=== PATIENT | female | born 1980 | race Caucasian/White ===

== ENCOUNTER 2016-10-30 20:29 | Emergency (ER) | payer OTHER ==
[~2016-10-30] VITALS: Ht 162.6 cm; Wt 67.5 kg
[2016-10-30 20:38] VITALS: BP 143/101; PULSE 91; RESP 16; TEMP 98.6; O2SAT 96
[2016-10-30 21:27] LABS: BLOOD, URINE NEG (NEG); GLUCOSE,URINE NEG (NEG); NITRITE,URINE NEG (NEG); PH, URINE 6.5 (5.0-8.5)
[2016-10-30 21:39] LABS: KETONE, URINE 80 OR GREATER mg/dL (NEG)
[2016-10-30 21:42] LABS: SQUAMOUS EPITHELIAL CELL URINE 0-5 /hpf (0-5); URINE COLOR YELLOW (YELLW/STRAW)
[2016-10-30 21:43] LABS: BACTERIA, URINE FEW /hpf; COMMENT (UR) CULTURE INDICATED; CULTURE IF INDICATED CULTURE INDICATED
[2016-10-30 22:00] VITALS: BP 159/87; PULSE 74; RESP 18; O2SAT 95
[2016-10-30] MEDS ORDERED: KETOROLAC TROMETHAMINE 30 MG/ML (IVP) VIAL IV PUSH ONE (22:00)
[2016-10-30] MEDS ORDERED: SODIUM CHLORIDE 0.9% FLUSH 10 ML FLUSH IV FLUSH PRN (22:00)
[2016-10-30] MEDS ORDERED: SODIUM CHLOR 0.9% 1000 ML INJ 1,000 ML IV ONE (22:00)
[2016-10-30 22:26] LABS: AUTOMATED NEUTROPHIL # 5.8 TH/MM3 (1.8-7.7); BASOPHIL # 0.1 TH/MM3 (0-0.2); BASOPHIL % 0.9 % (0.0-2.0); EOSINOPHIL # 0.3 TH/MM3 (0-0.4); EOSINOPHIL % 3.2 % (0.0-4.0); HEMO FLAGS DIFF FINAL; LYMPH % 18.8 % (9.0-44.0); LYMPHOCYTE # 1.6 TH/MM3 (1.0-4.8); MEAN CELL VOLUME 84.8 FL (80.0-100.0); MEAN CORPUSCULAR HEMOGLOBIN 29.4 PG (27.0-34.0); MEAN CORPUSCULAR HGB CONC 34.7 % (32.0-36.0); MONO % 6.9 % (0.0-8.0); NEUT % 70.2 % (16.0-70.0); PLATELET COUNT 291 TH/MM3 (150-450); RED BLOOD COUNT 4.48 MIL/MM3 (4.00-5.30); RED CELL DISTRIBUTION WIDTH 13.2 % (11.6-17.2); WHITE BLOOD COUNT 8.4 TH/MM3 (4.0-11.0)
[2016-10-30 22:34] LABS: POTASSIUM 3.5 MEQ/L (3.5-5.1)
[2016-10-30 22:37] LABS: BICARBONATE 26.6 MEQ/L (21.0-32.0)
[2016-10-30 23:03] VITALS: BP 138/84; PULSE 75; RESP 18; O2SAT 100
[2016-10-30] MEDS ORDERED: CIPR500T2 PO (23:04)
[2016-10-30] MEDS ORDERED: ULTR50TA5 PO (23:04)
--- NOTE | 2016-10-30 23:04 | PD ---
HPI Chief Complaint: Flank/Kidney Pain Time Seen by Provider: 22:02 Travel History International Travel<30 days: No Contact w/Intl Traveler<30days: No Traveled to known affect area: No History of Present Illness HPI Patient 36-year-old female with a history of kidney stones presents emergency department for evaluation of left flank pain. Patient denies any fevers, endorses mild nausea without vomiting. Denies any blood in the urine but does state she has some dysuria. Denies possibility for . Denies any cost patient diarrhea. Patient states symptoms are gradually worsening sharp in nature. Denies any vaginal bleeding vaginal discharge PFSH Past Medical History Diminished Hearing: Yes (GLASSES) Kidney Stones: Yes Tetanus Vaccination: Unknown Influenza Vaccination: Yes ?: Not LMP: 10/19/16 : 4 Para: 4 Miscarriage: 0 : 0 Past Surgical History Genitourinary Surgery: Yes (KIDNEY STONES) Oral Surgery: Yes (WISDOM TEETH) Social History Alcohol Use: Yes (RARE) Tobacco Use: No Substance Use: No Allergies-Medications (Allergen,Severity, Reaction): Coded Allergies: Sulfa (Verified Allergy, Intermediate, Rash, 10/30/16) Reported Meds & Prescriptions Reported Meds & Active Scripts Active Ciprofloxacin (Ciprofloxacin HCl) 500 Mg Tab 500 Mg PO BID 7 Days Ultram (Tramadol HCl) 50 Mg Tab 50 Mg PO Q6H PRN Review of Systems Except as stated in HPI: all other systems reviewed are Neg Physical Exam Narrative GENERAL: Well-developed well-nourished, comfortable in no apparent distress. SKIN: Focused skin assessment warm/dry. HEAD: Atraumatic. Normocephalic. EYES: Pupils equal and round. No scleral icterus. No injection or drainage. ENT: No nasal bleeding or discharge. Mucous membranes pink and moist. NECK: Trachea midline. No JVD. CARDIOVASCULAR: Regular rate and rhythm. No murmur appreciated. RESPIRATORY: No accessory muscle use. Clear to auscultation. Breath sounds equal bilaterally. GASTROINTESTINAL: Abdomen soft, non-tender, nondistended. Hepatic and splenic margins not palpable. Minimal left CVA tenderness. MUSCULOSKELETAL: No obvious deformities. No clubbing. No cyanosis. No edema. NEUROLOGICAL: Awake and alert. No obvious cranial nerve deficits. Motor grossly within normal limits. Normal speech. PSYCHIATRIC: Appropriate mood and affect; insight and judgment normal. Data Data Last Documented VS Vital Signs Date Time Temp Pulse Resp B/P Pulse Ox O2 Delivery O2 Flow Rate FiO2 10/30/16 23:03 75 18 138/84 100 Room Air 10/30/16 20:38 98.6 Orders Urinalysis - C+S If Indicated (10/30/16 20:50) Ed Urine Pregnancytest Poc (10/30/16 20:50) Urine Culture (10/30/16 21:07) Basic Metabolic Panel (Bmp) (10/30/16 21:51) Complete Blood Count With Diff (10/30/16 21:51) Iv Access Insert/Monitor (10/30/16 21:51) Ecg Monitoring (10/30/16 21:51) Oximetry (10/30/16 21:51) Sodium Chloride 0.9% Flush (Ns Flush) (10/30/16 22:00) Sodium Chlor 0.9% 1000 Ml Inj (Ns 1000 M (10/30/16 22:00) Ketorolac Inj (Toradol Inj) (10/30/16 22:00) Ciprofloxacin (Cipro) (10/30/16 23:15) Labs Laboratory Tests Test 10/30/16 10/30/16 21:07 22:05 Urine Color YELLOW Urine Turbidity HAZY Urine pH 6.5 Urine Specific [place] 1.020 Urine Protein NEG mg/dL Urine Glucose (UA) NEG mg/dL Urine Ketones 80 OR GREATER mg/dL Urine Occult Blood NEG Urine Nitrite NEG Urine Bilirubin NEG Urine Leukocyte Esterase MOD Urine WBC 9-14 /hpf Urine Squamous Epithelial 0-5 /hpf Cells Urine Bacteria FEW /hpf Microscopic Urinalysis Comment CULTURE INDICATED White Blood Count 8.4 TH/MM3 Red Blood Count 4.48 MIL/MM3 Hemoglobin 13.1 GM/DL Hematocrit 38.0 % Mean Corpuscular Volume 84.8 FL Mean Corpuscular Hemoglobin 29.4 PG Mean Corpuscular Hemoglobin 34.7 % Concent Red Cell Distribution Width 13.2 % Platelet Count 291 TH/MM3 Mean Platelet Volume 9.6 FL Neutrophils (%) (Auto) 70.2 % Lymphocytes (%) (Auto) 18.8 % Monocytes (%) (Auto) 6.9 % Eosinophils (%) (Auto) 3.2 % Basophils (%) (Auto) 0.9 % Neutrophils # (Auto) 5.8 TH/MM3 Lymphocytes # (Auto) 1.6 TH/MM3 Monocytes # (Auto) 0.6 TH/MM3 Eosinophils # (Auto) 0.3 TH/MM3 Basophils # (Auto) 0.1 TH/MM3 CBC Comment DIFF FINAL Differential Comment Sodium Level 141 MEQ/L Potassium Level 3.5 MEQ/L Chloride Level 105 MEQ/L Carbon Dioxide Level 26.6 MEQ/L Anion Gap 9 MEQ/L Blood Urea Nitrogen 9 MG/DL Creatinine 0.61 MG/DL Estimat Glomerular Filtration 111 ML/MIN Rate Random Glucose 92 MG/DL Calcium Level 9.4 MG/DL MDM Medical Decision Making Medical Screen Exam Complete: Yes Emergency Medical Condition: Yes Differential Diagnosis Polynephritis, kidney stone, urinary tract infection, acute abdomen unlikely. Narrative Course Patient roomed emerged department, she appears quite comfortable for a kidney stone. Her urine is much more indicative of an infection. There is no hematuria. I discussed with the patient be happy to pursue a CAT scan but at this point in my opinion is that the risks of radiation exposure outweigh the possible benefits. I recommended that she try antibiotics first and if her pain is not improved in the short-term that she can return emergency department for rule out of a kidney stone. At this time she would like to go home and try antibodies alone. She is feeling better after pain medicines in the emergency department. She stable for discharge this time. Recommend follow-up primary care physician. Diagnosis Primary Impression: Pyelonephritis Med/Other Pt SpecificInfo: Prescription(s) given Scripts Ciprofloxacin 500 Mg [id number] Mg PO BID 7 Days Ref 0 Prov:Johan Ruffin MD 10/30/16 Tramadol (Ultram)50 Mg Tab50 Mg PO Q6H PRN (PAIN) #15 TAB Ref 0 Prov:Johan Ruffin MD 10/30/16 Disposition: DISCHARGE HOME Condition: Stable Johan Ruffin MD Oct 30, 2016 23:04
[2016-10-30] MEDS ORDERED: CIPROFLOXACIN 500 MG TAB PO ONE (23:15)
== END 2016-10-30 23:22 | disposition home or self-care (01) ==
LOC: PHED 20:29
DX: N12 Tubulo-interstitial nephritis, not specified as acute or chronic (principal); R11.0 Nausea; Z87.442 Personal history of urinary calculi
CPT/HCPCS: 80048; 81001; 84703; 85025; 87086; 96361; 96374; 99284; J1885; J7030

== ENCOUNTER 2016-11-05 08:47 | Emergency (ER) | payer OTHER ==
[~2016-11-05] VITALS: Ht 165.1 cm; Wt 67.5 kg
[~2016-11-05 08:47] MED LIST: CIPR500T2 PO; ULTR50TA5 PO
[2016-11-05 08:49] VITALS: BP 130/82; PULSE 92; RESP 16; TEMP 98.4; O2SAT 99
[2016-11-05 09:13] LABS: BLOOD, URINE TRACE (NEG); GLUCOSE,URINE NEG (NEG); KETONE, URINE TRACE mg/dL (NEG); NITRITE,URINE NEG (NEG); PH, URINE 5.5 (5.0-8.5)
[2016-11-05 09:17] LABS: METHOD OF COLLECTION CLEAN CATCH; URINE COLOR YELLOW (YELLW/STRAW)
[2016-11-05 09:18] LABS: BACTERIA, URINE MANY /hpf; COMMENT (UR) CULTURE INDICATED; CULTURE IF INDICATED CULTURE INDICATED; SQUAMOUS EPITHELIAL CELL URINE > 8 /hpf (0-5)
--- NOTE | 2016-11-05 09:35 | PD ---
HPI Chief Complaint: Flank/Kidney Pain Time Seen by Provider: 09:34 Travel History International Travel<30 days: No Contact w/Intl Traveler<30days: No Traveled to known affect area: No History of Present Illness HPI 36-year-old female came to the emergency room with history of left flank pain. Patient says she was here a few days ago with same complain and was told that she has UTI and discharged home on ciprofloxacin. She has been taking it like she is supposed to. However she is not feeling any better. No history of fever or chills. Patient says she's been nauseous but has not had any vomiting. She does have history of kidney stones. No signs were stable in the ER. PFSH Past Medical History Narrative Medical List of her past medical, surgical, social and family history was reviewed from the nursing note. Hx Anticoagulant Therapy: No Diabetes: No Diminished Hearing: Yes (GLASSES) Kidney Stones: Yes Influenza Vaccination: Yes ?: Not LMP: 10/17/2016 : 4 Para: 4 Miscarriage: 0 : 0 Past Surgical History Genitourinary Surgery: Yes (KIDNEY STONES) Oral Surgery: Yes (WISDOM TEETH) Social History Alcohol Use: Yes (RARE) Tobacco Use: No Substance Use: No Allergies-Medications (Allergen,Severity, Reaction): Coded Allergies: Sulfa (Verified Allergy, Intermediate, Rash, 11/05/16) Comments List of her allergies reviewed from the nursing note. Reported Meds & Prescriptions Reported Meds & Active Scripts Active Macrobid (Nitrofurantoin Monoh/Nitrofur Macro) 100 Mg Cap 100 Mg PO BID 10 Days Ciprofloxacin (Ciprofloxacin HCl) 500 Mg Tab 500 Mg PO BID 7 Days Ultram (Tramadol HCl) 50 Mg Tab 50 Mg PO Q6H PRN Narrative Medication List of her home medications reviewed from the nursing note. Review of Systems Except as stated in HPI: all other systems reviewed are Neg Physical Exam Narrative GENERAL: Awake, alert, mild distress SKIN: Focused skin assessment warm/dry. HEAD: Atraumatic. Normocephalic. EYES: Pupils equal and round. No scleral icterus. No injection or drainage. ENT: No nasal bleeding or discharge. Mucous membranes pink and moist. NECK: Trachea midline. No JVD. CARDIOVASCULAR: Regular rate and rhythm. No murmur appreciated. RESPIRATORY: No accessory muscle use. Clear to auscultation. Breath sounds equal bilaterally. GASTROINTESTINAL: Abdomen soft, non-tender, nondistended. Hepatic and splenic margins not palpable. Left CVA tenderness MUSCULOSKELETAL: No obvious deformities. No clubbing. No cyanosis. No edema. NEUROLOGICAL: Awake and alert. No obvious cranial nerve deficits. Motor grossly within normal limits. Normal speech. PSYCHIATRIC: Appropriate mood and affect; insight and judgment normal. Data Data Last Documented VS Vital Signs Date Time Temp Pulse Resp B/P Pulse Ox O2 Delivery O2 Flow Rate FiO2 11/05/16 11:35 70 18 140/67 99 11/05/16 10:14 Room Air 11/05/16 08:49 98.4 Orders Urinalysis - C+S If Indicated (11/05/16 09:06) Ed Urine Pregnancytest Poc (11/05/16 09:06) Urine Culture (11/05/16 09:00) Complete Blood Count With Diff (11/05/16 09:40) Ct Abd/Pel W/O Iv Contrast (11/05/16 09:40) Iv Access Insert/Monitor (11/05/16 09:40) Ecg Monitoring (11/05/16 09:40) Oximetry (11/05/16 09:40) Sodium Chlor 0.9% 1000 Ml Inj (Ns 1000 M (11/05/16 09:40) Sodium Chloride 0.9% Flush (Ns Flush) (11/05/16 09:45) Ceftriaxone Inj (Rocephin Inj) (11/05/16 09:45) Blood Culture (11/05/16 09:40) Ketorolac Inj (Toradol Inj) (11/05/16 10:30) Labs Laboratory Tests Test 11/05/16 11/05/16 09:00 09:45 Urine Collection Type CLEAN CATCH Urine Color YELLOW Urine Turbidity CLEAR Urine pH 5.5 Urine Specific [place] 1.028 Urine Protein 30 mg/dL Urine Glucose (UA) NEG mg/dL Urine Ketones TRACE mg/dL Urine Occult Blood TRACE Urine Nitrite NEG Urine Bilirubin NEG Urine Leukocyte Esterase SMALL Urine RBC 4-9 /hpf Urine WBC 25-49 /hpf Urine WBC Clumps MOD Urine Squamous Epithelial > 8 /hpf Cells Urine Bacteria MANY /hpf Microscopic Urinalysis Comment CULTURE INDICATED Urine Collection Time 09:00 White Blood Count 8.6 TH/MM3 Red Blood Count 4.86 MIL/MM3 Hemoglobin 13.8 GM/DL Hematocrit 42.3 % Mean Corpuscular Volume 87.1 FL Mean Corpuscular Hemoglobin 28.4 PG Mean Corpuscular Hemoglobin 32.6 % Concent Red Cell Distribution Width 14.3 % Platelet Count 276 TH/MM3 Mean Platelet Volume 9.6 FL Neutrophils (%) (Auto) 76.2 % Lymphocytes (%) (Auto) 13.5 % Monocytes (%) (Auto) 6.7 % Eosinophils (%) (Auto) 2.9 % Basophils (%) (Auto) 0.7 % Neutrophils # (Auto) 6.4 TH/MM3 Lymphocytes # (Auto) 1.2 TH/MM3 Monocytes # (Auto) 0.6 TH/MM3 Eosinophils # (Auto) 0.3 TH/MM3 Basophils # (Auto) 0.1 TH/MM3 CBC Comment DIFF FINAL Differential Comment MDM Medical Decision Making Medical Screen Exam Complete: Yes Emergency Medical Condition: Yes Medical Record Reviewed: Yes Differential Diagnosis Acute pyelonephritis, renal colic Narrative Course 10:48 AM UA is suggestive of UTI. CBC is within normal limit. CT scan does not show any ureteral stone or obstruction. I will discharge her home on Macrobid. Patient had received 1 g of IV Rocephin and Toradol for pain. Procedures EKG Prior to Arrival: No Diagnosis Primary Impression: Pyelonephritis Referrals: Primary Care Physician 2 days Additional Instructions: Please return to the ER if the condition worsens or any other new concerns. Otherwise follow-up with your primary care in couple days. Taking ciprofloxacin that he will given. Instead take the new antibiotic that has been prescribed to you as directed. Med/Other Pt SpecificInfo: Prescription(s) given Scripts Nitrofurantoin Monohydrate Macrocrystals (Macrobid)100 Mg [id number] Mg PO BID 10 Days Ref 0 Prov:Nayeli Caballero MD 11/05/16 Disposition: 01 DISCHARGE HOME Condition: Stable Nayeli Caballero MD November 05, 2016 09:34
[2016-11-05] MEDS ORDERED: SODIUM CHLOR 0.9% 1000 ML INJ 1,000 ML IV SCH (09:40)
[2016-11-05] MEDS ORDERED: cefTRIAXone INJ 1,000 MG in SODIUM CHLORIDE 0.9% INJ 100 ML IV ONE (09:45)
[2016-11-05] MEDS ORDERED: SODIUM CHLORIDE 0.9% FLUSH 10 ML FLUSH IV FLUSH PRN (09:45)
[2016-11-05 09:59] LABS: AUTOMATED NEUTROPHIL # 6.4 TH/MM3 (1.8-7.7); BASOPHIL # 0.1 TH/MM3 (0-0.2); BASOPHIL % 0.7 % (0.0-2.0); EOSINOPHIL # 0.3 TH/MM3 (0-0.4); EOSINOPHIL % 2.9 % (0.0-4.0); HEMATOCRIT 42.3 % (35.0-46.0); LYMPH % 13.5 % (9.0-44.0); LYMPHOCYTE # 1.2 TH/MM3 (1.0-4.8); MEAN CELL VOLUME 87.1 FL (80.0-100.0); MEAN CORPUSCULAR HEMOGLOBIN 28.4 PG (27.0-34.0); MEAN CORPUSCULAR HGB CONC 32.6 % (32.0-36.0); MONO % 6.7 % (0.0-8.0); NEUT % 76.2 % (16.0-70.0); PLATELET COUNT 276 TH/MM3 (150-450); RED BLOOD COUNT 4.86 MIL/MM3 (4.00-5.30); RED CELL DISTRIBUTION WIDTH 14.3 % (11.6-17.2); WHITE BLOOD COUNT 8.6 TH/MM3 (4.0-11.0)
[2016-11-05 10:00] LABS: HEMO FLAGS DIFF FINAL
[2016-11-05 10:14] VITALS: BP 115/80; PULSE 84; RESP 18; O2SAT 98
--- NOTE | 2016-11-05 10:26 | RADHPO ---
EXAM DATE/TIME: 11/05/2016 09:55 [facility] COMPARISON: No previous studies available for comparison. INDICATIONS : Patient has history of renal stones, complains of left flank pain. ORAL CONTRAST: No oral contrast ingested. RADIATION DOSE: 8.30 CTDIvol (mGy) MEDICAL HISTORY : Renal calculi. SURGICAL HISTORY : None. ENCOUNTER: Subsequent ACUITY: 4 - 6 days PAIN SCALE: 8/10 LOCATION: Left flank : UrineNo If Y, explain: LABS:Labs Not Recorded Per Protocol BUN:2015 Hgb: PT: Creatinine:2016 Hct: APTT: GFR: Platelets: INR: D-Dimer: WBC: Beta:Previous IV Contrast? Previous reaction to iodinated contrast: Explain: Taking Glucophage, Glucovance, Avandamet, Metformin, Metformin/glyburide, Metformin/rosaiglitazone) - hold 48 hours post IV contrast. TECHNIQUE: Volumetric scanning of the abdomen and pelvis was performed. Using automated exposure control and ad justment of the mA and/or kV according to patient size, radiation dose was kept as low as reasonably achievable to obtain optimal diagnostic quality images. FINDINGS: LOWER LUNGS: The visualized lower lungs are clear. LIVER: Homogeneous density without lesion. There is no dilation of the biliary tree. No calcified gallston es. SPLEEN: The spleen is mildly enlarged. PANCREAS: Within normal limits. KIDNEYS: Normal in size and shape. There is no mass or hydronephrosis. There is a tiny 2 mm calcified nonobst ructing lower pole left renal calculus. ADRENAL GLANDS: Within normal limits. VASCULAR: There is no aortic aneurysm. BOWEL/MESENTERY: The stomach, small bowel, and colon demonstrate no acute abnormality. There is no free intraperitone al air or fluid. The appendix is not opacified. ABDOMINAL WALL: Within normal limits. RETROPERITONEUM: There is no lymphadenopathy. BLADDER: No wall thickening or mass. REPRODUCTIVE: Some free fluid is noted within the pelvis. The uterus and ovaries are unremarkable. INGUINAL: There is no lymphadenopathy or hernia. MUSCULOSKELETAL: Within normal limits for patient age. CONCLUSION: 1. Tiny 2 mm calcified nonobstructing lower pole left renal calculus. 2. No acute obstructive uropathy. 3. Mild splenomegaly. 4. Some free fluid within the pelvis. Johan Desai MD on November 05, 2016 at 10:18 Board Certified Radiologist. This report was verified electronically.
[2016-11-05] MEDS ORDERED: KETOROLAC TROMETHAMINE 30 MG/ML (IVP) VIAL IV PUSH ONE (10:30)
[2016-11-05] MEDS ORDERED: MACR100C2 PO (10:49)
[2016-11-05 11:16] VITALS: RESP 18
[2016-11-05 11:35] VITALS: BP 140/67
== END 2016-11-05 11:35 | disposition home or self-care (01) ==
LOC: PHED 08:47
DX: N12 Tubulo-interstitial nephritis, not specified as acute or chronic (principal); B96.89 Other specified bacterial agents as the cause of diseases classified elsewhere; Z87.442 Personal history of urinary calculi
CPT/HCPCS: 74176; 81001; 84703; 85025; 87040; 87086; 96365; 96375; 99284; J0696; J1885; J7030

== ENCOUNTER 2017-02-01 13:17 | Emergency (ER) | payer OTHER ==
[~2017-02-01 13:17] MED LIST changes: -CIPR500T2 PO; +LO LTAB PO; -ULTR50TA5 PO; +ZITHTAB PO
[2017-02-01 13:27] VITALS: BP 139/73; PULSE 81; RESP 18; TEMP 98.4; O2SAT 97
[2017-02-01] MEDS ORDERED: PROM12.54 PO (13:29)
[2017-02-01] MEDS ORDERED: METH750T PO (13:29)
[2017-02-01] MEDS ORDERED: SODIUM CHLOR 0.9% 1000 ML INJ 1,000 ML IV SCH (13:41)
[2017-02-01] MEDS ORDERED: ONDANSETRON HCL 4 MG/2 ML VIAL IVP ONE (13:45)
[2017-02-01] MEDS ORDERED: SODIUM CHLORIDE 0.9% FLUSH 10 ML FLUSH IV FLUSH PRN (13:45)
[2017-02-01] MEDS ORDERED: KETOROLAC TROMETHAMINE 30 MG/ML (IVP) VIAL IVP ONE (13:45)
--- NOTE | 2017-02-01 13:56 | PD ---
HPI Chief Complaint: Flank/Kidney Pain Time Seen by Provider: 13:32 Travel History International Travel<30 days: No Contact w/Intl Traveler<30days: No Traveled to known affect area: No History of Present Illness HPI The patient is a 37-year-old female who presents emergency department for left flank pain of one week's duration. Patient states she developed left mid back pain and flank pain 1 week ago that has been intermittent and episodic. She has been taking [id number] medications and pain medications for her symptoms which do help with the pain, however, the pain will return. The patient denies any dysuria, frequency, urgency, vaginal discharge, or vaginal bleeding. The first day of the last menstrual cycle was last Friday, patient denies . The patient does have a history of prior pyelonephritis and nephrolithiasis. The patient denies any current hematuria. She does complain of mild nausea secondary to the pain but denies any vomiting. The patient denies any associated fever, chills, or sweats. PFSH Past Medical History Hx Anticoagulant Therapy: No Diabetes: No Diminished Hearing: Yes (GLASSES) Kidney Stones: Yes ?: Not : 4 Para: 4 Miscarriage: 0 : 0 Past Surgical History Genitourinary Surgery: Yes (KIDNEY STONES) Oral Surgery: Yes (WISDOM TEETH) Social History Alcohol Use: Yes (RARE) Tobacco Use: No Substance Use: No Allergies-Medications (Allergen,Severity, Reaction): Coded Allergies: Sulfa (Verified Allergy, Intermediate, Rash, 02/01/17) Reported Meds & Prescriptions Reported Meds & Active Scripts Active Zithromax Z-Fadi (Azithromycin) 250 Mg Dspk 250 Mg PO DIRECTED 500 MG (2 tabs) day 1, then 1 tab days 2-5. Lo Loestrin Fe /10 (Norethindrone-Ethinyl Estradiol-Fe) 1-10 Mg-Mcg Tab 1 Tab PO DAILY Reported Methocarbamol 750 Mg Tab 750 Mg PO HS Promethazine (Promethazine HCl) 12.5 Mg Tab 25 Mg PO Q6H PRN Review of Systems Except as stated in HPI: all other systems reviewed are Neg General / Constitutional: No: Fever Gastrointestinal: Positive: Nausea, No: Vomiting, Abdominal Pain Genitourinary: Positive: Flank Pain, No: Urgency, Frequency, Dysuria, Hematuria, Discharge, Vaginal Bleeding Skin: No Rash Physical Exam Narrative GENERAL: Awake, alert, pleasant 37 year-old female who appears her stated age and is in no acute respiratory distress. SKIN: Focused skin assessment warm/dry. HEAD: Atraumatic. Normocephalic. EYES: No injection or drainage. ENT: No nasal bleeding or discharge. Mucous membranes pink and moist. NECK: Trachea midline. No JVD. CARDIOVASCULAR: Regular rate and rhythm. No murmur appreciated. RESPIRATORY: No accessory muscle use. Clear to auscultation. Breath sounds equal bilaterally. GASTROINTESTINAL: Abdomen soft, non-tender, nondistended. No suprapubic tenderness. Back: Left CVA tenderness. MUSCULOSKELETAL: No obvious deformities. No clubbing. No cyanosis. No edema. NEUROLOGICAL: Awake and alert. No obvious cranial nerve deficits. Motor grossly within normal limits. Normal speech. PSYCHIATRIC: Appropriate mood and affect; insight and judgment normal. Data Data Last Documented VS Vital Signs Date Time Temp Pulse Resp B/P Pulse Ox O2 Delivery O2 Flow Rate FiO2 02/01/17 14:04 102 18 119/78 96 Room Air 02/01/17 13:27 98.4 Orders Complete Blood Count With Diff (02/01/17 13:41) Comprehensive Metabolic Panel (02/01/17 13:41) Lipase (02/01/17 13:41) Urinalysis - C+S If Indicated (02/01/17 13:41) Iv Access Insert/Monitor (02/01/17 13:41) Ecg Monitoring (02/01/17 13:41) Oximetry (02/01/17 13:41) Ondansetron Inj (Zofran Inj) (02/01/17 13:45) Sodium Chlor 0.9% 1000 Ml Inj (Ns 1000 M (02/01/17 13:41) Sodium Chloride 0.9% Flush (Ns Flush) (02/01/17 13:45) Ketorolac Inj (Toradol Inj) (02/01/17 13:45) Ed Urine Pregnancytest Poc (02/01/17 13:56) Sodium Chlor 0.9% 1000 Ml Inj (Ns 1000 M (02/01/17 14:00) Ct Abd/Pel W/O Iv Contrast (02/01/17 ) Labs Laboratory Tests Test 02/01/17 02/01/17 13:40 13:45 Urine Collection Type CLEAN CATCH Urine Color YELLOW Urine Turbidity CLEAR Urine pH 8.5 Urine Specific [place] 1.016 Urine Protein NEG mg/dL Urine Glucose (UA) NEG mg/dL Urine Ketones NEG mg/dL Urine Occult Blood NEG Urine Nitrite NEG Urine Bilirubin NEG Urine Leukocyte Esterase NEG Urine WBC 3-5 /hpf Urine Squamous Epithelial 6-8 /hpf Cells Urine Amorphous Sediment FEW Microscopic Urinalysis Comment CULT NOT INDICATED Urine Collection Time 13:40 White Blood Count 9.4 TH/MM3 Red Blood Count 4.40 MIL/MM3 Hemoglobin 13.1 GM/DL Hematocrit 38.1 % Mean Corpuscular Volume 86.6 FL Mean Corpuscular Hemoglobin 29.8 PG Mean Corpuscular Hemoglobin 34.3 % Concent Red Cell Distribution Width 12.8 % Platelet Count 273 TH/MM3 Mean Platelet Volume 9.2 FL Neutrophils (%) (Auto) 69.8 % Lymphocytes (%) (Auto) 20.9 % Monocytes (%) (Auto) 5.7 % Eosinophils (%) (Auto) 2.7 % Basophils (%) (Auto) 0.9 % Neutrophils # (Auto) 6.5 TH/MM3 Lymphocytes # (Auto) 2.0 TH/MM3 Monocytes # (Auto) 0.5 TH/MM3 Eosinophils # (Auto) 0.3 TH/MM3 Basophils # (Auto) 0.1 TH/MM3 CBC Comment DIFF FINAL Differential Comment Sodium Level 143 MEQ/L Potassium Level 3.8 MEQ/L Chloride Level 109 MEQ/L Carbon Dioxide Level 27.2 MEQ/L Anion Gap 7 MEQ/L Blood Urea Nitrogen 10 MG/DL Creatinine 0.78 MG/DL Estimat Glomerular Filtration 83 ML/MIN Rate Random Glucose 85 MG/DL Calcium Level 8.9 MG/DL Total Bilirubin 0.4 MG/DL Aspartate Amino Transf 20 U/L (AST/SGOT) Alanine Aminotransferase 26 U/L (ALT/SGPT) Alkaline Phosphatase 48 U/L Total Protein 7.3 GM/DL Albumin 3.7 GM/DL Lipase 124 U/L [facility] Medical Decision Making Medical Screen Exam Complete: Yes Emergency Medical Condition: Yes Medical Record Reviewed: Yes Interpretation(s) Laboratory Tests Test 02/01/17 02/01/17 13:40 13:45 Urine Collection Type CLEAN CATCH Urine Color YELLOW Urine Turbidity CLEAR Urine pH 8.5 Urine Specific [place] 1.016 Urine Protein NEG mg/dL Urine Glucose (UA) NEG mg/dL Urine Ketones NEG mg/dL Urine Occult Blood NEG Urine Nitrite NEG Urine Bilirubin NEG Urine Leukocyte Esterase NEG Urine WBC 3-5 /hpf Urine Squamous Epithelial 6-8 /hpf Cells Urine Amorphous Sediment FEW Microscopic Urinalysis Comment CULT NOT INDICATED Urine Collection Time 13:40 White Blood Count 9.4 TH/MM3 Red Blood Count 4.40 MIL/MM3 Hemoglobin 13.1 GM/DL Hematocrit 38.1 % Mean Corpuscular Volume 86.6 FL Mean Corpuscular Hemoglobin 29.8 PG Mean Corpuscular Hemoglobin 34.3 % Concent Red Cell Distribution Width 12.8 % Platelet Count 273 TH/MM3 Mean Platelet Volume 9.2 FL Neutrophils (%) (Auto) 69.8 % Lymphocytes (%) (Auto) 20.9 % Monocytes (%) (Auto) 5.7 % Eosinophils (%) (Auto) 2.7 % Basophils (%) (Auto) 0.9 % Neutrophils # (Auto) 6.5 TH/MM3 Lymphocytes # (Auto) 2.0 TH/MM3 Monocytes # (Auto) 0.5 TH/MM3 Eosinophils # (Auto) 0.3 TH/MM3 Basophils # (Auto) 0.1 TH/MM3 CBC Comment DIFF FINAL Differential Comment Sodium Level 143 MEQ/L Potassium Level 3.8 MEQ/L Chloride Level 109 MEQ/L Carbon Dioxide Level 27.2 MEQ/L Anion Gap 7 MEQ/L Blood Urea Nitrogen 10 MG/DL Creatinine 0.78 MG/DL Estimat Glomerular Filtration 83 ML/MIN Rate Random Glucose 85 MG/DL Calcium Level 8.9 MG/DL Total Bilirubin 0.4 MG/DL Aspartate Amino Transf 20 U/L (AST/SGOT) Alanine Aminotransferase 26 U/L (ALT/SGPT) Alkaline Phosphatase 48 U/L Total Protein 7.3 GM/DL Albumin 3.7 GM/DL Lipase 124 U/L CT of the abdomen and pelvis reveals no acute obstructive uropathy. Stable tiny 2 mm calcified nonobstructing lower pole left renal calculus. Differential Diagnosis Differential diagnosis includes pyelonephritis, nephrolithiasis, hydronephrosis , diverticulitis, pancreatitis, ectopic , PID, cervicitis. Narrative Course IV was established, labs are drawn and sent, and the patient was placed on cardiac telemetry monitoring and continuous pulse oximetry monitoring. UA was obtained. Bedside UA test was obtained. The patient was administered Toradol, Zofran, and IV fluids for her symptoms. UA was negative, therefore, CT of the abdomen and pelvis without IV contrast was ordered to rule out nephrolithiasis. CBC and CMP are unremarkable. Bedside UA test was negative. CT of the abdomen and pelvis reveals a stable tiny 2 mm calcified nonobstructing lower pole left renal calculus. No acute obstructive uropathy noted. Patient's labs are unremarkable, UA is negative, and CT the abdomen and pelvis is unremarkable. Patient's pain may be secondary to neuralgia versus ovarian cyst. Patient is stable for outpatient follow-up. The patient states she has ibuprofen 800 mg for pain at home, I will add [place] as needed for breakthrough pain. Diagnosis Primary Impression: Left flank pain Patient Instructions: General Instructions Additional Instructions: Please provide the patient a copy of her lab results and CT results at discharge. Medications as directed. Follow-up with a primary physician. Return if symptoms worsen or progress. Med/Other Pt SpecificInfo: Prescription(s) given Scripts Hydrocodone-Acetaminophen ([place])5-325 mg Tab1 Tab PO Q6H PRN (PAIN) #15 TAB Ref 0 Prov:Jesse Barron MD 02/01/17 Disposition: 01 DISCHARGE HOME Condition: Stable Jesse Barron MD Feb 01, 2017 13:56
[2017-02-01] MEDS ORDERED: SODIUM CHLOR 0.9% 1000 ML INJ 1,000 ML IV ONE (14:00)
[2017-02-01 14:03] LABS: BLOOD, URINE NEG (NEG); GLUCOSE,URINE NEG (NEG); KETONE, URINE NEG (NEG); NITRITE,URINE NEG (NEG); PH, URINE 8.5 (5.0-8.5)
[2017-02-01 14:04] VITALS: BP 119/78; PULSE 102; RESP 18; O2SAT 96
[2017-02-01 14:05] LABS: METHOD OF COLLECTION CLEAN CATCH; URINE COLOR YELLOW (YELLW/STRAW)
[2017-02-01 14:07] LABS: COMMENT (UR) CULT NOT INDICATED; CULTURE IF INDICATED CULT NOT INDICATED
[2017-02-01 14:09] LABS: AUTOMATED NEUTROPHIL # 6.5 TH/MM3 (1.8-7.7); BASOPHIL # 0.1 TH/MM3 (0-0.2); BASOPHIL % 0.9 % (0.0-2.0); EOSINOPHIL # 0.3 TH/MM3 (0-0.4); EOSINOPHIL % 2.7 % (0.0-4.0); HEMATOCRIT 38.1 % (35.0-46.0); HEMO FLAGS DIFF FINAL; LYMPH % 20.9 % (9.0-44.0); MEAN CELL VOLUME 86.6 FL (80.0-100.0); MEAN CORPUSCULAR HEMOGLOBIN 29.8 PG (27.0-34.0); MEAN CORPUSCULAR HGB CONC 34.3 % (32.0-36.0); MONO % 5.7 % (0.0-8.0); NEUT % 69.8 % (16.0-70.0); PLATELET COUNT 273 TH/MM3 (150-450); RED CELL DISTRIBUTION WIDTH 12.8 % (11.6-17.2); WHITE BLOOD COUNT 9.4 TH/MM3 (4.0-11.0)
[2017-02-01 14:12] LABS: CHLORIDE 109 MEQ/L (98-107); POTASSIUM 3.8 MEQ/L (3.5-5.1); SODIUM (NA) 143 MEQ/L (136-145)
[2017-02-01 14:16] LABS: ANION GAP 7 MEQ/L (5-15); BICARBONATE 27.2 MEQ/L (21.0-32.0); BLOOD UREA NITROGEN 10 MG/DL (7-18)
[2017-02-01 14:19] LABS: ALT (GPT) 26 U/L (10-53); AST (GOT) 20 U/L (15-37); GLOMERULAR FILTRATION RATE 83 ML/MIN (>89)
[2017-02-01 14:20] LABS: TOTAL BILIRUBIN ADULT 0.4 MG/DL (0.2-1.0)
[2017-02-01 14:22] LABS: ALKALINE PHOSPHATASE 48 U/L (45-117)
--- NOTE | 2017-02-01 14:45 | RADRPT ---
EXAM DATE/TIME: 02/01/2017 14:22 [facility] COMPARISON: CT ABDOMEN & PELVIS W/O CONTRAST, November 05, 2016, 9:55. INDICATIONS : Left flank pain. History of stones. ORAL CONTRAST: None. RADIATION DOSE: 7.54 CTDIvol (mGy) MEDICAL HISTORY : Renal calculi. Seen in September SURGICAL HISTORY : None. ENCOUNTER: Initial ACUITY: 1 week PAIN SCALE: 7/10 LOCATION: Left flank TECHNIQUE: Volumetric scanning of the abdomen and pelvis was performed. Using automated exposure control and ad justment of the mA and/or kV according to patient size, radiation dose was kept as low as reasonably achievable to obtain optimal diagnostic quality images. DICOM format image data is available electro nically for review and comparison. FINDINGS: LOWER LUNGS: The visualized lower lungs are clear. LIVER: Homogeneous density without lesion. There is no dilation of the biliary tree. No calcified gallston es. SPLEEN: Normal size without lesion. PANCREAS: Within normal limits. KIDNEYS: Normal in size and shape. There is no mass or hydronephrosis. There is a tiny 2 mm calcified nonobst ructing lower pole left renal calculus. ADRENAL GLANDS: Within normal limits. VASCULAR: There is no aortic aneurysm. BOWEL/MESENTERY: The stomach, small bowel, and colon demonstrate no acute abnormality. There is no free intraperitone al air or fluid. ABDOMINAL WALL: Within normal limits. RETROPERITONEUM: There is no lymphadenopathy. BLADDER: No wall thickening or mass. REPRODUCTIVE: Within normal limits. INGUINAL: There is no lymphadenopathy or hernia. MUSCULOSKELETAL: Within normal limits for patient age. CONCLUSION: 1. No acute obstructive uropathy. 2. Stable tiny 2 mm calcified nonobstructing lower pole left renal calculus. Johan Desai MD on February 01, 2017 at 14:39 Board Certified Radiologist. This report was verified electronically.
[2017-02-01] MEDS ORDERED: NORC5TAB PO (14:52)
[2017-02-01 15:05] VITALS: BP 110/69
== END 2017-02-01 15:12 | disposition home or self-care (01) ==
LOC: PHED 13:17
DX: R10.9 Unspecified abdominal pain (principal); R11.0 Nausea; Z87.448 Personal history of other diseases of urinary system; Z87.442 Personal history of urinary calculi
CPT/HCPCS: 74176; 80053; 81001; 83690; 84703; 85025; 96361; 96374; 96375; 99285; J1885; J2405; J7030

== ENCOUNTER 2017-05-15 08:31 | Emergency (ER) | payer MEDICAID, OTHER ==
[~2017-05-15] VITALS: Ht 162.6 cm; Wt 60.1 kg
[~2017-05-15 08:31] MED LIST changes: +METH750T PO; +NORC5TAB PO; +PROM12.54 PO
[2017-05-15 08:35] VITALS: BP 136/83; PULSE 75; RESP 16; TEMP 98.3; O2SAT 98
[2017-05-15] MEDS ORDERED: EXCETAB31 PO (08:57)
[2017-05-15] MEDS ORDERED: SODIUM CHLOR 0.9% 1000 ML INJ 1,000 ML IV ONE (09:12)
[2017-05-15] MEDS ORDERED: ACETAMINOPHEN 325 MG TAB PO ONE (09:15)
[2017-05-15] MEDS ORDERED: PROCHLORPERAZINE INJ 10 MG/2 ML VIAL IVP ONE (09:15)
[2017-05-15] MEDS ORDERED: diphenhydrAMINE HCL 50 MG/ML VIAL IVP ONE (09:15)
[2017-05-15] MEDS ORDERED: SODIUM CHLORIDE 0.9% FLUSH 10 ML FLUSH IVF PRN (09:15)
[2017-05-15 10:11] VITALS: BP 115/85; PULSE 91; RESP 20; O2SAT 100
[2017-05-15] MEDS ORDERED: LORazepam 2 MG/ML VIAL IV PUSH ONE (10:15)
[2017-05-15] MEDS ORDERED: PROM25TA10 PO (10:34)
--- NOTE | 2017-05-15 10:36 | PD ---
HPI Chief Complaint: Headache Time Seen by Provider: 09:01 Travel History International Travel<30 days: No Contact w/Intl Traveler<30days: No Traveled to known affect area: No History of Present Illness HPI 37-year-old female complains of headache. Location is bifrontal. She's had it for about 1 week. She has a history of migraines. She tried Excedrin, Motrin and Tylenol and none of them helped. She has photophobia. Nausea is present without vomiting. She reports a low-grade temperature at home measured to be 100.0. She reports a history of migraines. Today's migraine started while she was at rest. She has had similar headaches however none have lasted as long. No pain in the neck. No family history aneurysm. PFSH Past Medical History Hx Anticoagulant Therapy: No Diabetes: No Diminished Hearing: Yes (GLASSES) Kidney Stones: Yes Tetanus Vaccination: > 5 Years Influenza Vaccination: No ?: Not LMP: 05/12/17 : 4 Para: 4 Miscarriage: 0 : 0 Past Surgical History Genitourinary Surgery: Yes ( LEFT KIDNEY -STONES REMOVED ) Oral Surgery: Yes (WISDOM TEETH) Social History Alcohol Use: Yes (RARE) Tobacco Use: No Substance Use: No Allergies-Medications (Allergen,Severity, Reaction): Coded Allergies: Sulfa (Sulfonamide Antibiotics) (Unverified Allergy, Intermediate, Rash, 05/15/17) Reported Meds & Prescriptions Reported Meds & Active Scripts Active Phenergan (Promethazine HCl) 25 Mg Tablet 25 Mg PO Q6H PRN Reported Excedrin Migraine Caplet (Aspirin/Acetaminophen/Caffeine) 250 Mg-250 Mg-65 Mg Tablet 1 Tab PO DAILY Review of Systems Except as stated in HPI: all other systems reviewed are Neg General / Constitutional: Positive: Fever (low-grade as described), No: Chills Neurologic: Positive: Headache Physical Exam Narrative GENERAL: 37-year-old female pleasant well-nourished well-developed mild to moderate distress SKIN: Warm and dry. HEAD: Atraumatic. Normocephalic. EYES: Pupils equal and round. No scleral icterus. No injection or drainage. ENT: No nasal bleeding or discharge. Mucous membranes pink and moist. NECK: Trachea midline. No JVD. CARDIOVASCULAR: Regular rate and rhythm. RESPIRATORY: No accessory muscle use. Clear to auscultation. Breath sounds equal bilaterally. GASTROINTESTINAL: Abdomen soft, non-tender, nondistended. Hepatic and splenic margins not palpable. MUSCULOSKELETAL: Extremities without clubbing, cyanosis, or edema. No obvious deformities. NEUROLOGICAL: Awake and alert. No obvious cranial nerve deficits. Motor grossly within normal limits. Five out of 5 muscle strength in the arms and legs. Normal speech. PSYCHIATRIC: Appropriate mood and affect; insight and judgment normal. Data Data Last Documented VS Vital Signs Date Time Temp Pulse Resp B/P (MAP) Pulse Ox O2 Delivery O2 Flow Rate FiO2 05/15/17 11:42 05/15/17 11:29 87 18 99 05/15/17 11:09 Room Air 05/15/17 08:35 98.3 VS reviewed Orders Orders Ecg Monitoring (05/15/17 09:12) Iv Access Insert/Monitor (05/15/17 09:12) Oximetry (05/15/17 09:12) Sodium Chloride 0.9% Flush (Ns Flush) (05/15/17 09:15) Acetaminophen (Tylenol) (05/15/17 09:15) Prochlorperazine Inj (Compazine Inj) (05/15/17 09:15) Diphenhydramine Inj (Benadryl Inj) (05/15/17 09:15) Sodium Chlor 0.9% 1000 Ml Inj (Ns 1000 M (05/15/17 09:12) Lorazepam Inj (Ativan Inj) (05/15/17 10:15) MDM Medical Decision Making Medical Screen Exam Complete: Yes Emergency Medical Condition: Yes Medical Record Reviewed: Yes Differential Diagnosis migraine, tension headache, aneurysm, subarachnoid hemorrhage, thrombosis, mass Narrative Course Compazine and Benadryl were administered intravenously and the patient became agitated about 2 minutes later consistent with akathisia. She received 1 mg IV Ativan promptly improved. We'll observe her for a couple hours and if she remains asymptomatic plan discharge home with a diagnosis of migraine. Patient's symptoms remained much better after Ativan. Return precautions discussed. Diagnosis Primary Impression: Migraine Qualified Codes: G43.009 - Migraine without aura, not intractable, without status migrainosus Additional Impression: Akathisia Referrals: [facility] PO call for appointment Additional Instructions: You have a choice when it comes to health care, and we are glad that you chose [facility]. Hopefully, we have met your expectations on today's visit. You are welcome to return to [facility] at any time, as we are committed to meeting the health care needs of our community. Med/Other Pt SpecificInfo: Prescription(s) given Scripts Promethazine (Phenergan) 25 Mg Tablet 25 MG PO Q6H Y for MIGRAINE HEADACHE, #12 TAB 0 Refills Prov: Colby Powell MD 05/15/17 Disposition: 01 DISCHARGE HOME Condition: Stable Colby Powell MD May 15, 2017 10:36
[2017-05-15 11:29] VITALS: BP 120/70; PULSE 87; RESP 18; O2SAT 99
== END 2017-05-15 11:43 | disposition home or self-care (01) ==
LOC: PHED 08:31
DX: G43.009 Migraine without aura, not intractable, without status migrainosus (principal); G25.71 Drug induced akathisia
CPT/HCPCS: 96361; 96374; 96375; 99285; J0780; J1200; J2060; J7030

== ENCOUNTER 2017-05-28 16:32 | Emergency (ER) | payer MEDICAID ==
[~2017-05-28] VITALS: Ht 162.6 cm; Wt 60.2 kg
[~2017-05-28 16:32] MED LIST changes: +EXCETAB31 PO; -LO LTAB PO; -METH750T PO; -NORC5TAB PO; -PROM12.54 PO; -ZITHTAB PO
[2017-05-28 16:33] VITALS: BP 133/76; PULSE 80; RESP 16; TEMP 98; O2SAT 98
[2017-05-28] MEDS ORDERED: Birth Control PO (16:50)
[2017-05-28] MEDS ORDERED: IBUP1TAB7 PO (16:50)
[2017-05-28] MEDS ORDERED: KETOROLAC TROMETHAMINE 30 MG/ML (IVP) VIAL IV PUSH ONE (17:00)
[2017-05-28] MEDS ORDERED: MECLIZINE HCL 25 MG TAB PO ONE (17:00)
[2017-05-28] MEDS ORDERED: ONDANSETRON HCL 4 MG/2 ML VIAL IV PUSH ONE (17:00)
[2017-05-28] MEDS ORDERED: SODIUM CHLOR 0.9% 1000 ML INJ 1,000 ML IV ONE (17:00)
--- NOTE | 2017-05-28 17:08 | PD ---
HPI Chief Complaint: Headache Time Seen by Provider: 16:47 Travel History International Travel<30 days: No Contact w/Intl Traveler<30days: No Traveled to known affect area: No History of Present Illness HPI 37yo F with PMH of migraine presents to the ED with c/o frontal headache since 05/16/17. Pt was seen here for her headache on May 15 and was given compazine and benadryl but had akathisia so was given ativan. Pt said her headache returned the next day and is not relieved with tylenol, exedrin. Said she went to urgent care and they gave her antibiotics for sinus headache but it didnt help. Headache feels like her migraine, dull, constant and associated with nausea and photophobia. Denies any fever, neck pain, chest pain, sob, vomiting , abdominal pain, trauma, focal weakness or numbness. Pt also said she has been feeling dizzy with the headache and room spinning. Denies any tinnitus. Said feels dizzy if she gets up too fast from sitting. PFSH Past Medical History Hx Anticoagulant Therapy: No Diabetes: No Diminished Hearing: Yes (GLASSES) Kidney Stones: Yes Tetanus Vaccination: Unknown Influenza Vaccination: Yes ?: Not : 4 Para: 4 Miscarriage: 0 : 0 Past Surgical History Genitourinary Surgery: Yes ( LEFT KIDNEY -STONES REMOVED ) Oral Surgery: Yes (WISDOM TEETH) Social History Alcohol Use: Yes (RARE) Tobacco Use: No Substance Use: No Allergies-Medications (Allergen,Severity, Reaction): Coded Allergies: Sulfa (Sulfonamide Antibiotics) (Verified Allergy, Intermediate, Rash, ) Reported Meds & Prescriptions Reported Meds & Active Scripts Active Fioricet (Fpuiukhwva-Camlvktakrbvz-Yzccmwmd) 50-300-40 Mg Cap 2 Cap PO Q4H PRN Reported [ Control] PO DAILY NEB Ibuprofen 800 Mg Tab 800 Mg PO Q6HR PRN Excedrin Migraine Caplet (Aspirin/Acetaminophen/Caffeine) 250 Mg-250 Mg-65 Mg Tablet 1 Tab PO DAILY Review of Systems Except as stated in HPI: all other systems reviewed are Neg Physical Exam Narrative GENERAL: 37yo F in mild distress. SKIN: Focused skin assessment warm/dry. HEAD: Atraumatic. Normocephalic. EYES: Pupils equal and round at 4mm bilaterally. EOMI. ENT: TM wnl bilaterally. Throat: Clear. No ttp frontal or maxillary sinus bilaterally. NECK: No nuchal rigidity. CARDIOVASCULAR: Regular rate and rhythm. No murmur appreciated. RESPIRATORY: No accessory muscle use. Clear to auscultation. Breath sounds equal bilaterally. GASTROINTESTINAL: Abdomen soft, non-tender, nondistended. MUSCULOSKELETAL: No obvious deformities. No clubbing. No cyanosis. No edema. NEUROLOGICAL: Awake and alert. No obvious cranial nerve deficits. Motor grossly within normal limits. Normal speech. PSYCHIATRIC: Appropriate mood and affect; insight and judgment normal. Data Data Last Documented VS Vital Signs Date Time Temp Pulse Resp B/P (MAP) Pulse Ox O2 Delivery O2 Flow Rate FiO2 05/28/17 21:52 72 18 116/74 (88) 99 05/28/17 21:06 Room Air 05/28/17 16:33 98.0 Orders Orders Ketorolac Inj (Toradol Inj) (05/28/17 17:00) Ondansetron Inj (Zofran Inj) (05/28/17 17:00) Sodium Chlor 0.9% 1000 Ml Inj (Ns 1000 M (05/28/17 17:00) Meclizine (Antivert) (05/28/17 17:00) Electrocardiogram (05/28/17 ) Orthostatic Vital Signs (05/28/17 16:59) Ed Urine Pregnancytest Poc (05/28/17 17:08) Blood Glucose (05/28/17 17:08) Bhif-Emtgc-Enuz 325-50-40 Mg (Fioricet 3 (05/28/17 18:45) Ct Brain W/O Iv Contrast(Rout) (05/28/17 ) Diphenhydramine Inj (Benadryl Inj) (05/28/17 20:45) Methylprednisolone So Succ Inj (Solumedr (05/28/17 20:45) Ed Discharge Order (05/28/17 21:40) MDM Medical Decision Making Medical Screen Exam Complete: Yes Emergency Medical Condition: Yes Interpretation(s) EKG: NSR 65bpm. Normal axis. No ST segment elevation or depression. Differential Diagnosis Migraine headache vs. peripheral vertigo vs. tension headache vs. cluster headache Narrative Course 37yo F with headache since May 16. Pt is well appearing and has no fever or neck pain. Also with dizziness that sounds like vertigo. Pt given toradol, zofran, meclizine and NS IVF. Said headache has improved but still has some so will also give fioricet. Pt no longer have room spinning or nauseous. Blood glucose 93. negative. Pt reevaluated at bedside and said headache is back. Headache is still 7 out of 10. Fioricet is helping only a little. Said it has never lasted this long and never had imaging before. Will do CT brain and have next team follow up on results. Diagnosis Primary Impression: Headache Qualified Codes: R51 - Headache Scripts Iakfbifbiy-Wuqnzqszbuxai-Admkyaom (Fioricet) 50-300-40 Mg Cap 2 CAP PO Q4H Y for HEADACHE, #30 CAP 0 Refills Prov: Delano Almazan MD 05/28/17 Poly Mitchell DO May 28, 2017 17:07
[2017-05-28 17:34] VITALS: BP_SYST 115; BP_SYST 120; BP_SYST 123; BP_DIAS 76; BP_DIAS 83; BP_DIAS 87; RESP 18
[2017-05-28] MEDS ORDERED: ACETAMIN 325 MG/BUTALBITAL 50 MG/CAFFEINE 40 MG TAB PO ONE (18:45)
[2017-05-28 19:03] VITALS: BP 126/84; PULSE 69; RESP 18; O2SAT 100
--- NOTE | 2017-05-28 19:53 | RADRPT ---
EXAM DATE/TIME: 05/28/2017 19:36 [facility] COMPARISON: No previous studies available for comparison. INDICATIONS : Cephalgia. RADIATION DOSE: 62.64 CTDIvol (mGy) MEDICAL HISTORY : None SURGICAL HISTORY : None. ENCOUNTER: Initial ACUITY: 4 - 6 months PAIN SCALE: 8/10 LOCATION: cranial TECHNIQUE: Multiple contiguous axial images were obtained of the head. Using automated exposure control and adj ustment of the mA and/or kV according to patient size, radiation dose was kept as low as reasonably a chievable to obtain optimal diagnostic quality images. DICOM format image data is available electro nically for review and comparison. FINDINGS: CEREBRUM: The ventricles are normal for age. No evidence of midline shift, mass lesion, hemorrhage or acute in farction. No extra-axial fluid collections are seen. POSTERIOR FOSSA: The cerebellum and brainstem are intact. The 4th ventricle is midline. The cerebellopontine angle i s unremarkable. EXTRACRANIAL: The visualized portion of the orbits is intact. SKULL: The calvaria is intact. No evidence of skull fracture. CONCLUSION: Negative noncontrast CT brain. Vinny Garcia MD on May 28, 2017 at 19:51 Board Certified Radiologist. This report was verified electronically.
[2017-05-28] MEDS ORDERED: diphenhydrAMINE HCL 50 MG/ML VIAL IVP ONE (20:45)
[2017-05-28] MEDS ORDERED: methylPREDNISolone SOD SUCC 125 MG/2 ML VIAL IV PUSH ONE (20:45)
[2017-05-28 21:06] VITALS: BP 113/73; PULSE 70; RESP 18; O2SAT 99
[2017-05-28] MEDS ORDERED: BUTA1CAP PO (21:39)
--- NOTE | 2017-05-28 21:39 | PD ---
Physical Exam Time Seen by Provider: 21:[address] Mitchell gave this patient to me to see how they headache was resolving and make a disposition. There is no laboratory or imaging to check. The CT scan of the head is normal. Data Data Last Documented VS Vital Signs Date Time Temp Pulse Resp B/P (MAP) Pulse Ox O2 Delivery O2 Flow Rate FiO2 05/28/17 21:06 70 18 113/73 (86) 99 Room Air 05/28/17 16:33 98.0 Orders Orders Ketorolac Inj (Toradol Inj) (05/28/17 17:00) Ondansetron Inj (Zofran Inj) (05/28/17 17:00) Sodium Chlor 0.9% 1000 Ml Inj (Ns 1000 M (05/28/17 17:00) Meclizine (Antivert) (05/28/17 17:00) Electrocardiogram (05/28/17 ) Orthostatic Vital Signs (05/28/17 16:59) Ed Urine Pregnancytest Poc (05/28/17 17:08) Blood Glucose (05/28/17 17:08) Huat-Diwwt-Qyek 325-50-40 Mg (Fioricet 3 (05/28/17 18:45) Ct Brain W/O Iv Contrast(Rout) (05/28/17 ) Diphenhydramine Inj (Benadryl Inj) (05/28/17 20:45) Methylprednisolone So Succ Inj (Solumedr (05/28/17 20:45) MDM Medical Record Reviewed: Yes Supervised Visit with VINCENT: No Interpretation(s) The CT brain is normal. Differential Diagnosis Migraine headache, tension headache, tension/migraine combination headache, cluster headache, normal pressure hydrocephalus-unlikely, intracranial bleed- highly unlikely Narrative Course The patient appears to have a migraine headache. It is now 9:38 PM and the patient's headache is only 3/10 and she wants to go home. Plan: The patient be given Fioricet prescription and follow-up with a primary care physician. Diagnosis Primary Impression: Headache Qualified Codes: R51 - Headache Departure Forms: Tests/Procedures Additional Instruction: Please follow up with your primary care physician in 2-3 days. Return to the ED if symptoms worsen. Med/Other Pt SpecificInfo: Prescription(s) given Scripts Tpffcladpl-Hczcgmewbufrb-Tpisarzq (Fioricet) 50-300-40 Mg Cap 2 CAP PO Q4H Y for HEADACHE, #30 CAP 0 Refills Prov: Delano Almazan MD 05/28/17 Disposition: 01 DISCHARGE HOME Condition: Stable Delano Almazan MD May 28, 2017 21:39
[2017-05-28 21:52] VITALS: BP 116/74
--- NOTE | 2017-05-29 10:38 | EKG ---
Date Performed: 05/28/2017 Time Performed: 17:12:40 PTAGE: 37 years EKG: Sinus rhythm NORMAL ECG NO PREVIOUS TRACING DOCTOR: Thiago Rushing Interpretating Date/Time 05/29/2017 10:37:29
[2017-06-10] MEDS ORDERED: AMOX500C PO (10:00)
== END 2017-05-28 21:54 | disposition home or self-care (01) ==
LOC: PHED 16:32
DX: R51 Headache (principal); Z79.82 Long term (current) use of aspirin; Z79.899 Other long term (current) drug therapy
CPT/HCPCS: 70450; 84703; 93005; 96361; 96374; 96375; 99285; J1200; J1885; J2405; J2930; J7030

== ENCOUNTER → 2017-06-12 | Day surgery (SDC) | payer BC, MEDICAID ==
[~2017-06-12] MED LIST changes: +ACETAMINOPHEN 1000 MG/100 ML 100 ML IV ONE; +AMOX500C PO; +BUPIVACAINE/EPINEPHRINE 0.5% PF 30 ML VIAL ONE; +BUTA1CAP PO; +Birth Control PO; +IBUP1TAB7 PO; +KETOROLAC TROMETHAMINE 30 MG/ML (IVP) VIAL IV PUSH ONE; +LACTATED RINGER'S 1000 ML INJ 1,000 ML ONE; +MIDAZOLAM HCL 2 MG/2 ML VIAL ONE; +ONDANSETRON HCL 4 MG/2 ML VIAL IV PUSH ONE; +ONDANSETRON HCL 4 MG/2 ML VIAL IV PUSH PRN; +PROPOFOL 200 MG/20 ML AMP IV ONE; +ceFAZolin 2 GM PREMIX 50 ML ONE; +oxyCODONE/ACETAMINOPHEN 10 MG/325 MG TAB PO PRN
--- NOTE | 2017-06-12 08:46 | MP ---
cc: RAKESH RIZO MD DATE OF SURGERY 06/12/2017 PREOPERATIVE DIAGNOSIS Left Bartholin's abscess. POSTOPERATIVE DIAGNOSIS Left Bartholin's abscess. OPERATION Marsupialization of Bartholin's abscess. SURGEON MD Sallie ANESTHESIA General. ESTIMATED BLOOD LOSS Minimal. FINDINGS A left Bartholin's abscess which had already spontaneously started to drain. COMPLICATIONS None. SEAL EXTRUSION OPERATOR None. PROCEDURE The patient was prepped free in the dorsal lithotomy position. A #15 scalpel blade was used to make an incision in the left Bartholin's gland over a point where it had spontaneously started to drain. Next, a small portion of the fibrotic wall of the abscess was removed using a Metzenbaum scissor and then using #3 Vicryl suture the wall and the gland was sutured in a running locking stitch, two separate sutures used. Some local anesthesia of local lidocaine was instilled in the area of the cut surface of the Bartholin's gland and then, after good hemostasis noted, the patient returned to the recovery room in stable condition. Rakesh Rizo MD JSG/SSB /8:23 AM /8:33 AM
--- NOTE | 2017-06-12 10:30 | TH ---
cc: EDNA BOWMAN MD DATE: 06/11/2017 HISTORY OF PRESENT ILLNESS This patient is a 37-year-old white female. She is 4, para 4. She is being admitted to [facility] for marsupialization of a Bartholin's abscess. HISTORY OF PRESENT ILLNESS The patient was recently seen in the office complaining of left vulvar pain. She explains that she had in the past a Bartholin's abscess of the right side and now she feels there is one on the left. We did examine her and there was a Bartholin's abscess palpable in the left vulva region and we discussed marsupialization. She was sent home with antibiotics and then called the next day and had decided she wanted to proceed with the marsupialization. The risks of the procedure were discussed at length. ALLERGIES SULFA MEDICATION. OB HISTORY She is 4, para 4 with four vaginal deliveries. FAMILY HISTORY Significant that her father and mother both have asthma. SOCIAL HISTORY She describes herself as a non-drinker and also describes no history of tobacco use. REVIEW OF SYSTEMS Essentially noncontributory. PHYSICAL EXAMINATION GENERAL: The patient was seen well-developed, well-nourished, in no acute distress. VITAL SIGNS: Blood pressure 110/60, pulse 70, respirations 12. HEENT: Negative. CHEST: Clear to auscultation. CARDIOVASCULAR: Regular rate. ABDOMEN: Soft. Bowel sounds were positive. PELVIC: External genital revealed a marked mass in the left volar region consistent with a Bartholin's abscess. EXTREMITIES: No cyanosis, clubbing or edema. NEUROPSYCHIATRIC: The patient was oriented x3 and showed no gross neurocranial deficit. IMPRESSION AND PLAN Impression on admission is left Bartholin's abscess and the plan is for marsupialization. MD VANGIE Handy/LUCIANA /2:35 PM /10:15 AM
== END | disposition home or self-care (01) ==
LOC: ESDC 06:32
PROVIDERS: ATTEND Obstetrics & Gynecology
DX: N75.1 Abscess of Bartholin's gland (principal)
CPT/HCPCS: 00940; 56440; 88305; J0131; J0690; J1885; J2250; J2405; J3010; J7120; 88304